=== PATIENT | female | born 1965 | race Caucasian/White ===

== ENCOUNTER 2016-10-05 22:15 | Emergency (ER) | payer MEDICAID ==
[2016-10-05] MEDS ORDERED: KETOROLAC TROMETHAMINE 60 MG/2 ML VIAL ONE (22:32)
--- NOTE | 2016-10-05 23:17 | ER NURSING DOCUMENTATION ---
Nurse's Notes [facility] Name:Nyla Perez Age:51 yrs Sex:Female :1965 Arrival Date:10/05/2016 Time:22:15 BedTrauma A Private MD:Shirley Cadet Diagnosis:Hematoma of Head Presentation: 10/05 22:20 Acuity: ERICK 2 rh 22:21 Presenting complaint: EMS states: PT was having an argument with her , she then rh fell down and hit her head. PT has bruising on the right lateral neck, both hands and her right forehead has a large hematoma/purple bruising. Care prior to arrival: None. Mechanism of Injury:. 22:21 Method Of Arrival: EMS: 410 22:24 Transition of care: Home. Triage Assessment: 22:25 General: Appears distressed, Behavior is anxious, restless, Smells of alcohol. Pain: rh Complains of pain in forehead and right zoroastrianism. Neuro: Level of Consciousness is awake, alert, Oriented to person, event. Cardiovascular: Capillary refill < 3 seconds Chest pain is denied. Respiratory: Airway is patent. GI: Denies nausea. : No deficits noted. Derm: Skin is intact, is healthy with good turgor, Skin is pink, warm & dry. Bruising that is dark purple, on forehead, right zoroastrianism and right jaw. Musculoskeletal: Circulation, motion, and sensation intact Range of motion intact in all extremities. Historical: - Allergies: Ambien; Reglan; Ciprofloxacin; Ativan; Zofran (oral form); pantoprazole; - Home Meds: 1. oxycodone 10 mg oral tab 1 tab every 6 hours 2. diazepam 10 mg oral tab 1 tab 3 times per day PRN 3. hawthorn oral 4. white willow bark 5. loratadine 10 mg oral tab 1 tab once daily 6. ranitidine HCl 150 mg oral tab 1 tab once daily - PMHx: SEIZURES; ANXIETY; PANCREATITIS; MIGRAINES; SCHIZOPHRENIA; GERD; OBESITY; PERIPHERAL NEUROPATHY; Duodenal Ulcer; Distal Fibula Fracture(May 01, 2016); - PSHx: CHOLECYSECTOMY; TUBAL LIGATION; APPENDECTOMY; Right Distal Radius ORIF; - Tetanus: unable to assess. - Ebola Screening: : Patient negative for fever greater than or equal to 101.5 degrees Fahrenheit, and additional compatible Ebola Virus Disease symptoms. - Immunization history: Unable to Obtain. - Social history: Smoking status: Patient uses tobacco products, current every day smoker. Screenin:28 Infectious Disease Risk None. Abuse screen: Denies threats or abuse. Denies injuries rh from another. Nutritional screening: No deficits noted. Assessment: 22:28 See Triage Assessment done by same RN. rh 22:50 Reassessment: Pt called police station to see about getting back into her house and if rh they have a set of keys. Pt's was arrested and taken to [facility]. . 23:12 Reassessment: Police here, brought patients keys to her. They are going to give the rh patient a ride home.. Vital Signs: 22:10 BP 117 / 90; Pulse 81; Resp 18; Temp 98; Pulse Ox 98.6% on R/A; Weight 68.04 kg; Height rh 5 ft. 3 in. (160.02 cm); Pain 10/10; 23:17 rh 22:10 Body Mass Index 26.57 (68.04 kg, 160.02 cm) rh 23:17 Pt refused DC vitals rh [place] Coma Score: 22:58 Eye Response: spontaneous(4). Verbal Response: oriented(5). Motor Response: obeys sc commands(6). Total: 15. 23:05 Eye Response: spontaneous(4). Verbal Response: oriented(5). Motor Response: obeys sc commands(6). Total: 15. ED Course: 22:15 Notified ED Physician of patient's arrival and chief complaint. Dr. Cuevas notified. rh 22:16 Patient arrived in ED. em2 22:16 Shirley Cadet DO is Private Physician. em2 22:17 Keny Cuevas MD is Attending Physician. sc 22:20 Bertha Beaulieu is Primary Nurse. rh 22:20 Triage completed. rh 22:28 Valuables Remains with patient Patient has correct armband on for positive rh identification. Bed in low position. Call light in reach. 23:06 Shirley Cadet DO is Referral Physician. sc Administered Medications: 22:37 Drug: Toradol 60 mg; Route: IM; Site: left deltoid; mv 23:16 Follow up: Response: No adverse reaction rh 22:37 Drug: Phenergan 25 mg; Route: IM; Site: right deltoid; mv 23:16 Follow up: Response: No adverse reaction Outcome: 23:06 Discharge ordered by . al 23:16 Discharged to home ambulatory, With Police 23:16 Condition: stable 23:16 Discharge Assessment: Patient awake and alert. 23:16 Discharge instructions given to patient, Instructed on discharge instructions, follow up and referral plans. 23:17 Patient left the ED. 10/06 12:19 Discharge F/U Call: Unable to reach: no answer 10/07 08:58 Discharge F/U Call: Spoke with: patient. Have you made a f/u appointment? yes Overall ke Care on a scale of 1-10 with 10 being the best care, you rate our care as: Other comments: Eye is swollen now. She states that Dr. Cuevas was a "real jerk" and "a problem". She has friends staying with her due to ongoing dizziness, but other than that, no change in her symptoms. Signatures: Ramya Mckinney, RN Keny Walker MD MD sc Meinking-reg, Oralia-matheus 2 Bertha Beaulieu Monica Elizabeth, risa Travis RN
--- NOTE | 2016-10-05 23:17 | ER PHYSICIAN DOCUMENTATION ---
Physician Documentation [facility] Name:Nyla Perez Age:51 yrs Sex:Female :1965 Arrival Date:10/05/2016 Time:22:15 BedTrauma A Private MD:Shirley Cadet EDbeboKeny Disposition: 10/05/16 23:06 Discharged to Home/Self Care. Impression: Hematoma of Head. - Condition is Good. - Discharge Instructions: Bruise - HEMATOMA, Acute Brain Injuries - HEAD INJURY, No Wake-Up (Adult). - Medical Reconciliation form form. - Follow up: Shirley Cadet DO; When: 1 - 2 days; Reason: Recheck today's complaints, Continuance of care. - Problem is new. - Symptoms have improved. HPI: 10/05 22:58 This 51 yrs old Female presents to ER via EMS with complaints of Fall Injury. sc 22:58 The patient or guardian reports swelling. The complaints affect the forehead. Context sc of injury: The problem was sustained at home, resulted from a fall, from a standing position. Onset: The symptom(s)/episode began/occurred just prior to arrival. Associated signs and symptoms: The patient has no apparent associated signs or symptoms, Loss of consciousness: This patient did not experience any loss of consciousness. admits oxycodone this am, two shots EtOH at 17:00 and marijuana use and diazepam, argued with verbally and neighbor called police, patient hit forehead on floor. Historical: - Allergies: Ambien; Reglan; Ciprofloxacin; Ativan; Zofran (oral form); pantoprazole; - Home Meds: 1. oxycodone 10 mg oral tab 1 tab every 6 hours 2. diazepam 10 mg oral tab 1 tab 3 times per day PRN 3. hawthorn oral 4. white willow bark 5. loratadine 10 mg oral tab 1 tab once daily 6. ranitidine HCl 150 mg oral tab 1 tab once daily - PMHx: SEIZURES; ANXIETY; PANCREATITIS; MIGRAINES; SCHIZOPHRENIA; GERD; OBESITY; PERIPHERAL NEUROPATHY; Duodenal Ulcer; Distal Fibula Fracture(May 01, 2016); - PSHx: CHOLECYSECTOMY; TUBAL LIGATION; APPENDECTOMY; Right Distal Radius ORIF; - Tetanus: unable to assess. - Ebola Screening: : Patient negative for fever greater than or equal to 101.5 degrees Fahrenheit, and additional compatible Ebola Virus Disease symptoms. - Immunization history: Unable to Obtain. - Social history: Smoking status: Patient uses tobacco products, current every day smoker. ROS: 23:01 Constitutional: Negative for fever, chills, and weight loss. sc Eyes: Negative for injury, pain, redness, and discharge. ENT: Negative for injury, pain, and discharge. Neck: Negative for injury, pain, and swelling. Cardiovascular: Negative for chest pain, palpitations, and edema. Respiratory: Negative for shortness of breath, cough, wheezing, and pleuritic chest pain. Abdomen/GI: Negative for abdominal pain, nausea, vomiting, diarrhea, and constipation. Back: Negative for injury and pain. MS/Extremity: Negative for injury and deformity. 23:01 Skin: Negative for injury, rash, and discoloration. sc 23:01 Neuro: Positive for Exam: Constitutional: This is a well developed, well nourished patient who is awake, alert, and in no acute distress. Eyes: Pupils equal round and reactive to light, extra-ocular motions intact. Lids and lashes normal. Conjunctiva and sclera are non-icteric and not injected. Cornea within normal limits. Periorbital areas with no swelling, redness, or edema. ENT: Nares patent. No nasal discharge, no septal abnormalities noted. Tympanic membranes are normal and external auditory canals are clear. Oropharynx with no redness, swelling, or masses, exudates, or evidence of obstruction, uvula midline. Mucous membranes moist. Neck: Trachea midline, no thyromegaly or masses palpated, and no cervical lymphadenopathy. Supple, full range of motion without nuchal rigidity, or vertebral point tenderness. No meningismus. Chest/axilla: Normal chest wall appearance and motion. Nontender with no deformity. No lesions are appreciated. Cardiovascular: Regular rate and rhythm with a normal S1 and S2. No gallops, murmurs, or rubs. Normal PMI, no JVD. No pulse deficits. Respiratory: Lungs have equal breath sounds bilaterally, clear to auscultation and percussion. No rales, rhonchi or wheezes noted. No increased work of breathing, no retractions or nasal flaring. Abdomen/GI: Soft, non-tender, with normal bowel sounds. No distension or tympany. No guarding or rebound. No evidence of tenderness throughout. Back: No spinal tenderness. No costovertebral tenderness. Full range of motion. Skin: Warm, dry with normal turgor. Normal color with no rashes, no lesions, and no evidence of cellulitis. MS/ Extremity: Pulses equal, no cyanosis. Neurovascular intact. Full, normal range of motion, negative Homans's, calves equal bilaterally. 23:02 Neuro: Awake and alert, GCS 15, oriented to person, place, time, and situation. sc Cranial nerves II-XII grossly intact. Motor strength 5/5 in all extremities. Sensory grossly intact. Cerebellar exam normal. Normal gait. 23:02 Head/face: Noted is hematoma, that is moderate, of the forehead. 23:02 Neuro: Orientation: to person, place & time. Mentation: is normal, Cranial nerves: CN II- XII are normal as tested, Cerebellar function: normal finger to nose testing, heel to lowery testing is normal, Gait: is steady, Deep tendon reflexes are 2+ (normal) in the bilateral brachioradialis, bicep, tricep and patellar and Achilles tendons. 23:02 Psych: Behavior/mood is cooperative, aggressive, Affect is animated, Oriented to person, place, time, wants to make police pay for arresting her , Judgement / Insight is impaired. Memory is normal. Delusions/hallucinations are not present. 23:07 Eyes: Pupils: equal, round, and reactive to light and accomodation. sc 23:07 ENT: Ear canal(s): are normal, TM's: hemotympanum, is not appreciated. 23:07 Neck: C-spine: appears grossly normal, no acute changes, ROM/movement: is normal. Vital Signs: 22:10 BP 117 / 90; Pulse 81; Resp 18; Temp 98; Pulse Ox 98.6% on R/A; Weight 68.04 kg; Height rh 5 ft. 3 in. (160.02 cm); Pain 10/10; 23:17 rh 22:10 Body Mass Index 26.57 (68.04 kg, 160.02 cm) rh 23:17 Pt refused DC vitals rh [place] Coma Score: 22:58 Eye Response: spontaneous(4). Verbal Response: oriented(5). Motor Response: obeys mt commands(6). Total: 15. 23:05 Eye Response: spontaneous(4). Verbal Response: oriented(5). Motor Response: obeys mt commands(6). Total: 15. MDM: 22:17 Patient medically screened. mt 23:05 Differential diagnosis: Hematoma on head. Neurological re-evaluation: normal mt neurological exam including cranial nerves, orientation, mentation, motor and sensory exam, cerebellar testing, GCS normal, and normal gait. Data reviewed: vital signs, nurses notes. Data reviewed: and as a result, I will continue to observe the patient. Counseling: I had a detailed discussion with the patient and/or guardian regarding: the historical points, exam findings, and any diagnostic results supporting the discharge/admit diagnosis, lab results. Refusal of service: The patient/guardian displays adequate decision making capability and despite a detailed discussion of alternatives, benefits, risks, and consequences refuses: CT Scan. Dispensed Medications: 22:37 Drug: Toradol 60 mg; Route: IM; Site: left deltoid; mv 23:16 Follow up: Response: No adverse reaction 22:37 Drug: Phenergan 25 mg; Route: IM; Site: right deltoid; mv 23:16 Follow up: Response: No adverse reaction Signatures: Keny Cuevas MD MD sc Hofsess, Rachel risa freeman
== END 2016-10-05 23:17 | disposition home or self-care (01) ==
LOC: ER 22:15
DX: S00.83XA Contusion of other part of head, initial encounter (principal); W19.XXXA Unspecified fall, initial encounter; Y92.039 Unspecified place in apartment as the place of occurrence of the external cause; R45.4 Irritability and anger; Z79.899 Other long term (current) drug therapy; Z74.3 Need for continuous supervision
CPT/HCPCS: 96372; 99283; A0425; A0429; J1885; J2550